=== PATIENT | female | born 2000 | race Caucasian/White ===

== ENCOUNTER → 2021-01-12 17:04 | Observation (INO) ==
[~2021-01-12 17:04] MED LIST: Acetaminophen 325 MG TABLET PO ONE; Loratadine 10 MG TABLET PO SCH; Saline Nasal Spray 44 ML BOTTLE NS PRN
== END | disposition home or self-care (01) ==
LOC: 1NENULAB
PROVIDERS: ADMIT Advanced Practice Midwife; ATTEND Advanced Practice Midwife

== ENCOUNTER 2021-02-24 21:54 | Inpatient (IN) ==
[2021-02-24] MEDS ORDERED: Metoclopramide 10 MG/2 ML VIAL IVP PRN (22:12)
[2021-02-24] MEDS ORDERED: Famotidine 20 MG/2 ML VIAL IVP PRN (22:12)
[2021-02-24] MEDS ORDERED: Naloxone 0.4 MG/ML INJ IVP PRN (22:12)
[2021-02-24] MEDS ORDERED: Ondansetron 4 MG/2 ML VIAL IVP PRN (22:12)
[2021-02-24] MEDS ORDERED: *HR* Nalbuphine 10 MG/ML AMPUL IV PRN (22:12)
[2021-02-24] MEDS ORDERED: Ringers Solution, Lactated 1,000 ML IVC SCH (22:15)
[2021-02-24] MEDS ORDERED: Oxytocin 20 units/ LR 1000 mL 20 UNIT/1,000 ML BAG IVC SCH (22:15)
[2021-02-24 22:51] LABS: Basophils % 0.3 %; Eosinophils # 0.2 K/mcL (0.0-0.6); Hematocrit 38.1 % (35.3-44.9); Hemoglobin 12.8 g/dL (11.5-15.4); Immature Granulocytes % 0.3 % (0-4); Lymphocytes # 3.2 K/mcL (0.6-4.6); Lymphocytes % 26.1 %; Mean Corpuscular HGB Conc 33.6 g/dL (31.6-35.5); Mean Corpuscular Hemoglobin 31.5 pg (28.0-33.3); Mean Corpuscular Volume 93.8 fL (83.0-100.0); Mean Platelet Volume 10.5 fL (9.4-12.4); Monocytes # 0.8 K/mcL (0.0-1.3); Monocytes % 6.7 %; Neutrophils # 7.9 K/mcL (1.6-8.9); Platelet Count 304 K/mcL (140-400); Red Blood Count 4.06 M/mcL (3.82-4.97); Red Cell Distribution Width 11.9 % (11.5-14.5); Segmented Neutrophils % 64.6 %; White Blood Count 12.2 K/mcL (4.3-11.1)
[2021-02-24 23:00] LABS: Amphetamine Screen,Urine Negative ng/mL (Cutoff=1000); Barbiturate Screen,Urine Negative ng/mL (Cutoff=200); Benzodiazepines Screen,Urine Negative ng/mL (Cutoff=200); Cannabinoid Screen,Urine Negative ng/mL (Cutoff = 50); Cocaine Screen,Urine Negative ng/mL (Cutoff= 300); Opiate Screen,Urine Negative ng/mL (Cutoff=300); Phencyclidine Screen,Urine Negative ng/mL (Cutoff=25)
[2021-02-24] MEDS ORDERED: *HR* FentaNYL (PF) 100 MCG/2 ML VIAL EP ONE (23:06)
[2021-02-24] MEDS ORDERED: Ropivacaine/PF 0.2% 20 ML VIAL EP ONE (23:06)
[2021-02-24] MEDS ORDERED: EPHEDrine 50 MG/ML VIAL IVP PRN (23:06)
[2021-02-24] MEDS ORDERED: Epidural Premix (fent/bupiv) 110 ML EP SCH (23:15)
[2021-02-25] MEDS ORDERED: *HR* HYDROcodone/Acet 5/325 mg TABLET PO PRN (08:50)
[2021-02-25] MEDS ORDERED: Oxytocin 20 units/ LR 1000 mL 20 UNIT/1,000 ML BAG IVC SCH (08:50)
[2021-02-25] MEDS ORDERED: Lanolin 7 G OINT...G. TP PRN (08:50)
[2021-02-25] MEDS: Ibuprofen 600 MG TABLET PO PRN ×3 (10:49→22:05)
[2021-02-25] MEDS: Prenatal Vit/FA 1 EACH TABLET PO SCH (10:49)
[2021-02-25] MEDS: Benzocaine/Menthol 56 GM AEROSOL SPRAY TP PRN (10:50)
[2021-02-25] MEDS: Acetaminophen 325 MG TABLET PO PRN (20:30)
[2021-02-26] MEDS: Acetaminophen 325 MG TABLET PO PRN (02:43)
[2021-02-26 07:51] VITALS: BP 98/68
[2021-02-26] MEDS: Prenatal Vit/FA 1 EACH TABLET PO SCH (08:57)
[2021-02-26] MEDS: Ibuprofen 600 MG TABLET PO PRN (09:03)
[2021-02-26] MEDS: Benzocaine/Menthol 56 GM AEROSOL SPRAY TP PRN (12:16)
== END 2021-02-26 12:30 | disposition home or self-care (01) | DRG 560 ==
LOC: 1NENULAB 21:54 → 1NENUOBS 02-25 10:16
PROVIDERS: ADMIT Advanced Practice Midwife; ATTEND Advanced Practice Midwife